=== PATIENT | female | born 1940 | race Caucasian/White ===

== ENCOUNTER → 2021-02-21 | Outpatient (CLI) | payer MEDICARE ==
[2021-02-23 10:22] LABS: Stool Occult Bld Immuno 1 Positive (NEGATIVE)
== END | disposition home or self-care (01) ==
LOC: LAB SHORT 11:00 → LAB 11:00 → LAB FUT 02-21 15:45
PROVIDERS: Family Medicine
DX: Z12.11 Encounter for screening for malignant neoplasm of colon (principal)
CPT/HCPCS: G0328

== ENCOUNTER 2021-11-27 08:41 | Emergency (ER) | payer MEDICARE ==
[~2021-11-27] VITALS: Ht 167.6 cm; Wt 90.7 kg
[2021-11-27] MEDS ORDERED: ROSUVASTATIN CA20 MG PO (09:03)
[2021-11-27] MEDS ORDERED: ALLOPURINOL100 M1 PO (09:04)
[2021-11-27] MEDS ORDERED: PANTOPRAZOLE SO40 M2 PO (09:04)
[2021-11-27] MEDS ORDERED: METOPROLOL TART25 MG PO (09:04)
[2021-11-27] MEDS ORDERED: MECL12.5 PO (09:04)
[2021-11-27] MEDS ORDERED: CELEXA10 MG PO (09:04)
== END 2021-11-27 09:40 | disposition home or self-care (01) ==
LOC: ER 08:41
DX: S60.571A Other superficial bite of hand of right hand, initial encounter (principal); I10 Essential (primary) hypertension; Z23 Encounter for immunization; W54.0XXA Bitten by dog, initial encounter; Z79.899 Other long term (current) drug therapy
CPT/HCPCS: 90714

== ENCOUNTER 2023-01-28 15:48 | Emergency (ER) | payer MEDICARE ==
[~2023-01-28] VITALS: Ht 165.1 cm; Wt 90.7 kg
[~2023-01-28 15:48] MED LIST: ALLOPURINOL100 M1 PO; CELEXA10 MG PO; MECL12.5 PO; METOPROLOL TART25 MG PO; PANTOPRAZOLE SO40 M2 PO; ROSUVASTATIN CA20 MG PO
[2023-01-28 16:50] VITALS: BP 145/67
[2023-01-28] MEDS ORDERED: AMLO5 PO (16:52)
[2023-01-28] MEDS ORDERED: IBANDRONATE SO150 MG PO (16:53)
[2023-01-28 17:06] LABS: BASOPHILS ABSOLUTE AUTO 0.04 K/mm3 (0.00-0.23); BASOPHILS PERCENT AUTO 1 % (0-2); EOSINOPHILS ABSOLUTE AUTO 0.15 K/mm3 (0.00-0.68); EOSINOPHILS PERCENT AUTO 2 % (0-6); Hematocrit 37.2 % (33.0-51.0); Hemoglobin 12.7 g/dL (11.5-16.0); IMMATURE GRAN ABSOLUTE AUTO 0.05 K/mm3 (0.00-0.10); IMMATURE GRAN PERCENT AUTO 1 % (0-1); LYMPHOCYTES ABSOLUTE AUTO 1.55 K/mm3 (0.84-5.20); LYMPHOCYTES PERCENT AUTO 20 % (21-46); MONOCYTES ABSOLUTE AUTO 0.53 K/mm3 (0.16-1.47); MONOCYTES PERCENT AUTO 7 % (4-13); Mean Corpuscular HGB 28.9 pg (26.0-34.0); Mean Corpuscular HGB Conc 34.1 g/dL (31.5-36.5); Mean Corpuscular Volume 85 fL (80-100); Mean Platelet Volume 10.4 fL (9.1-12.4); NEUTROPHILS ABSOLUTE AUTO 5.44 K/mm3 (1.96-9.15); NEUTROPHILS PERCENT AUTO 70 % (41-73); Platelet Count 191 K/mm3 (150-400); RDW Coefficient Variation 13.2 % (11.7-14.2); Red Blood Cell Count 4.39 M/mm3 (3.80-5.20); White Blood Cell Count 7.76 K/mm3 (4.00-11.30)
[2023-01-28 17:17] LABS: Albumin, Blood 3.4 g/dL (3.4-5.0); Albumin/Globulin Ratio 0.9 (0.8-1.8); Bilirubin, Total 0.3 mg/dL (0.1-1.0); Calcium, Blood 8.8 mg/dL (8.5-10.1); Creatinine, Blood 1.33 mg/dL (0.40-1.00); Globulin, Blood 3.9 g/dL (2.2-4.0); Potassium, Blood 3.7 mmol/L (3.5-5.5); Total Protein, Blood 7.3 g/dL (6.4-8.2)
[2023-01-28] MEDS ORDERED: ONDA4ODT SL (20:38)
== END 2023-01-28 20:49 | disposition home or self-care (01) ==
LOC: ER 15:48
PROVIDERS: Emergency Medicine
DX: R11.2 Nausea with vomiting, unspecified (principal); R19.7 Diarrhea, unspecified; Z79.899 Other long term (current) drug therapy
CPT/HCPCS: 80053; 83690; 84484; 85025; 93005; 93010; 96360; 99284-25; A9270; J7030